=== PATIENT | male | born 1955 | race Two or more races ===

== ENCOUNTER 2017-05-13 08:00 | Outpatient (CLI) | payer BC, OTHER ==
[2017-05-13 12:51] LABS: BASOPHILS # (AUTO) 0.1 10^3/uL (0.0-0.1); BASOPHILS % (AUTO) 0.7 %; EOSINOPHILS # (AUTO) 0.3 10^3/uL (0.0-0.7); EOSINOPHILS % (AUTO) 3.2 %; HCT - HEMATOCRIT 44.1 % (42.0-52.0); HGB - HEMOGLOBIN 14.9 g/dL (14.0-18.0); LYMPHOCYTES % (AUTO) 24.9 %; MEAN CORPUSCULAR HEMOGLOBIN 30.6 pg (27.0-31.0); MEAN CORPUSCULAR HGB CONC 33.8 g/dL (32.0-36.0); MEAN CORPUSCULAR VOLUME 90.6 fL (80.0-94.0); MEAN PLATELET VOLUME 9.1 fL (7.4-11.4); MONOCYTES # (AUTO) 0.7 10^3/uL (0.0-1.0); MONOCYTES % (AUTO) 8.9 %; NEUTROPHILS # (AUTO) 4.9 10^3/uL (1.5-6.6); NEUTROPHILS % (AUTO) 62.3 %; NUCLEATED RED BLOOD CELLS AUTO 0.1 /100WBC; RED BLOOD COUNT 4.87 10^6/uL (4.70-6.10); RED CELL DISTRIBUTION WIDTH 14.4 % (12.0-15.0); UNCORRECTED WHITE BLOOD COUNT 7.9 x10^3/uL; WHITE BLOOD COUNT 7.9 x10^3/uL (4.8-10.8)
[2017-05-13 13:21] LABS: ALBUMIN/GLOBULIN RATIO 1.4 (1.0-2.2); BILIRUBIN,TOTAL 0.8 mg/dL (0.2-1.0); BUN - BLOOD UREA NITROGEN 17 mg/dL (6-20); CALCIUM 9.1 mg/dL (8.5-10.3); CARBON DIOXIDE - CO2 25 mmol/L (21-32); CHLORIDE 108 mmol/L (101-111); CHOL/HDL RATIO 5.5 (<5.0); CHOLESTEROL 181 mg/dL; GFR - MDRD 76 (>89); GLUCOSE 132 mg/dL (70-100); HDL CHOLESTEROL 33 mg/dL; LDL/HDL RATIO 3.7 (<3.6); POTASSIUM 4.3 mmol/L (3.5-5.0); SODIUM 139 mmol/L (135-145); TOTAL PROTEIN 7.1 g/dL (6.7-8.2); TRIGLYCERIDES 123 mg/dL; VLDL CHOLESTEROL 25 mg/dL
== END 2017-05-13 08:01 | disposition home or self-care (01) ==
LOC: LAB.WCP 08:00
PROVIDERS: ATTEND Family Medicine
DX: E78.5 Hyperlipidemia, unspecified (principal); Z12.5 Encounter for screening for malignant neoplasm of prostate
CPT/HCPCS: 36415; 80053; 80061; 84153; 85025

== ENCOUNTER 2020-01-26 17:24 | Outpatient (CLI) | payer OTHER | END 2020-01-26 17:25 | disposition critical access hospital (66) | LOC: EMS 17:24 | PROVIDERS: ATTEND Surgery | DX: R41.82 Altered mental status, unspecified (principal); R11.2 Nausea with vomiting, unspecified | CPT/HCPCS: A0425; A0427 ==

== ENCOUNTER 2020-01-26 17:36 | Emergency (ER) | payer OTHER ==
[2020-01-26] MEDS ORDERED: SODIUM CHLORIDE 0.9% 1,000 ML IV STA (17:52)
[2020-01-26 18:21] LABS: BASOPHILS # (AUTO) 0.1 10^3/uL (0.0-0.1); BASOPHILS % (AUTO) 0.4 %; EOSINOPHILS # (AUTO) 0.1 10^3/uL (0.0-0.7); EOSINOPHILS % (AUTO) 0.9 %; HGB - HEMOGLOBIN 15.1 g/dL (14.0-18.0); LYMPHOCYTES # (AUTO) 2.1 10^3/uL (1.5-3.5); LYMPHOCYTES % (AUTO) 17.7 %; MEAN CORPUSCULAR HEMOGLOBIN 31.5 pg (27.0-31.0); MEAN CORPUSCULAR HGB CONC 33.9 g/dL (32.0-36.0); MEAN CORPUSCULAR VOLUME 92.9 fL (80.0-94.0); MEAN PLATELET VOLUME 10.1 fL (7.4-11.4); MONOCYTES # (AUTO) 0.7 10^3/uL (0.0-1.0); MONOCYTES % (AUTO) 5.9 %; NEUTROPHILS # (AUTO) 8.6 10^3/uL (1.5-6.6); NEUTROPHILS % (AUTO) 74.4 %; PLT - PLATELET COUNT 251 10^3/uL (130-450); RED CELL DISTRIBUTION WIDTH 13.7 % (12.0-15.0); WHITE BLOOD COUNT 11.6 x10^3/uL (4.8-10.8)
--- NOTE | 2020-01-26 18:28 | ED Physician Documentation ---
History of Present Illness - Stated complaint Stated Complaint: N/V - Chief complaint Chief Complaint: General - History obtained from History obtained from: Patient, Family, EMS - History of Present Illness Timing: Today - Additonal information Additional information: 64-year-old male began to feel quite abnormal began to have excessive diaphoresis and difficulty concentrating and he eventually vomited. He called his friend Dr. Razo and when he did not have improvement with hydration Dr. Rzao came to evaluate the patient and found him to be diaphoretic and not thinking clearly. A granddaughter present indicated that she had made some cannabis brownies usually containing about 200 mg of THC and one brownie. She states she eats 1/4 of one of these brownies and her father unknowingly ate the entire brownie. He does not have experience with cannabis or other drugs. He does not feel well. Review of Systems Constitutional: reports: Fatigue, Sweats. denies: Fever Ears: denies: Ear pain Nose: denies: Congestion Throat: denies: Sore throat Cardiac: denies: Chest pain / pressure, Palpitations Respiratory: denies: Dyspnea, Cough GI: reports: Nausea, Vomiting : denies: Dysuria Skin: denies: Rash Musculoskeletal: denies: Neck pain, Back pain, Extremity pain Neurologic: reports: Confused. denies: Generalized weakness, Focal weakness, Numbness, Headache, Head injury, LOC Psychiatric: reports: Hallucinations PD PAST MEDICAL HISTORY - Past Medical History Cardiovascular: Hypertension Respiratory: None Neuro: None Endocrine/Autoimmune: None GI: None : None HEENT: None Psych: None Musculoskeletal: None Derm: None - Past Surgical History Past Surgical History: No - Present Medications Home Medications: Ambulatory Orders Medication Instructions Recorded Confirmed Telmisartan/Hydrochlorothiazid 1 each PO DAILY 01/26/20 01/26/20 [Telmisartan-Hctz 40-12.5 mg Tb] - Allergies Allergies/Adverse Reactions: Allergies Allergy/AdvReac Type Severity Reaction Status Date / Time No Known Drug Allergies Allergy Verified 01/26/20 17:50 - Social History Does the pt smoke?: No Smoking Status: Never smoker Does the pt drink ETOH?: Yes Does the pt have substance abuse?: No - Immunizations Immunizations are current?: Yes PD ED PE NORMAL - Vitals Vital signs reviewed: Yes (NORMAL ) - General General: No acute distress, Well developed/nourished, Other (The patient is withdrawn prefers to sit with his eyes closed and is interactive only when specifically requested.) - HEENT HEENT: Atraumatic, PERRL, EOMI - Neck Neck: Supple, no meningeal sign, No bony TTP - Cardiac Cardiac: No murmur, Other (irregular) - Respiratory Respiratory: No respiratory distress, Clear bilaterally - Abdomen Abdomen: Soft, Non tender - Back Back: No CVA TTP, No spinal TTP - Derm Derm: Normal color, Warm and dry, No rash - Extremities Extremities: No deformity, No edema - Neuro Neuro: Alert and oriented X 3, buncher operator 2-12 intact, No motor deficit, No sensory deficit, Normal speech Eye Opening: To Voice Motor: Obeys Commands Verbal: Oriented GCS Score: 14 - Psych Psych: Other (mood is withdrawn and the affect is flat ) Results - Vitals Vitals: Vital Signs - 24 hr 01/26/20 01/26/20 01/26/20 17:50 17:58 19:15 Temperature 35.6 C L Heart Rate 97 99 84 Respiratory 22 16 16 Rate Blood Pressure 108/65 141/74 H 124/92 H O2 Saturation 93 95 98 Oxygen O2 Source Room air - EKG (time done) 1800 Rate: Rate (enter#) (112) Rhythm: LAE, Other (frequent PAC's) [place]: LAD QRS: Poor R wave progression Compare to prior EKG: Old EKG unavailable Computer interpretation: Agree with computer - Labs Labs: Laboratory Tests 01/26/20 01/26/20 01/26/20 18:16 18:16 18:16 WBC 11.6 H RBC 4.80 Hgb 15.1 Hct 44.6 MCV 92.9 MCH 31.5 H MCHC 33.9 RDW 13.7 Plt Count 251 MPV 10.1 Neut # (Auto) 8.6 H Lymph # (Auto) 2.1 [place] # (Auto) 0.7 Eos # (Auto) 0.1 Baso # (Auto) 0.1 Absolute Nucleated RBC 0.00 Nucleated RBC % 0.0 Sodium 139 Potassium 3.7 Chloride 102 Carbon Dioxide 27 Anion Gap 10.0 BUN 15 Creatinine 1.1 Estimated GFR (MDRD) 68 L Glucose 228 H Calcium 9.1 Total Bilirubin 0.5 AST 30 ALT 24 Alkaline Phosphatase 45 Troponin I High Sens 3.3 Total Protein 7.4 Albumin 4.5 Globulin 2.9 Albumin/Globulin Ratio 1.6 Lipase 22 PD MEDICAL DECISION MAKING - ED course Complexity details: reviewed results, re-evaluated patient, considered differential, d/w patient, d/w family ED course: 64-year-old male with very little experience with cannabis has ingested a significant quantity unbeknownst to him and now feels quite abnormal. He has ingested as much as 200 mg of THC which is a high dose, a typical edible will have 10mg per "dose". He has become ill with this is become diaphoretic and he has having trouble concentrating. Is brought into the emergency department IV saline running and we will place him while in observation until he improves. Departure - Departure Clinical Impression: Cannabis intoxication delirium Condition: Stable Instructions: ED Marijuana Abuse
[2020-01-26 18:35] LABS: ALBUMIN 4.5 g/dL (3.2-5.5); ALBUMIN/GLOBULIN RATIO 1.6 (1.0-2.2); BILIRUBIN,TOTAL 0.5 mg/dL (0.2-1.0); CALCIUM 9.1 mg/dL (8.5-10.3); CREATININE 1.1 mg/dL (0.6-1.2); TOTAL PROTEIN 7.4 g/dL (6.7-8.2)
--- NOTE | 2020-01-27 00:51 | ED Physician Documentation ---
ED Addendum - Addendum Addendum: 01/27/20 00:49 The patient had been turned over to me on change of shift. He apparently had unintentionally ingested some cannabis edibles. He is having altered mentation and off balance for walking. He was still feeling of bit lightheaded and confused on my initial exam. However over the next few hours the patient had gradual improvement and subsequently was able to be up and around and ambulatory and felt sturdy enough to at home. No other symptoms have developed. His is with him and feels comfortable taking him home at this point. Diagnosis accidental ingestion of cannabis with altered mental status Disposition the patient is discharged home in stable condition
[2020-01-27 01:39] VITALS: BP 122/79
== END 2020-01-27 00:55 | disposition home or self-care (01) ==
LOC: EDUNIT# → ED 17:36
DX: F12.921 Cannabis use, unspecified with intoxication delirium (principal); I10 Essential (primary) hypertension; R00.0 Tachycardia, unspecified; I49.1 Atrial premature depolarization; I44.4 Left anterior fascicular block
CPT/HCPCS: 36415; 80053; 83690; 84484; 85025; 93005; 96360; 96361; 99284

== ENCOUNTER 2022-05-22 06:23 | Day surgery (SDC) | payer MEDICARE, OTHER ==
[2022-05-22] MEDS ORDERED: LACTATED RINGERS 1,000 ML IV ONE ×2 (07:05→08:27)
--- NOTE | 2022-05-22 07:10 | ANESTHESIA ---
Pre-Anesthesia VS, & Labs - Diagnosis screening colonoscopy - Procedure colonoscopy Vital Signs: Temp Pulse Resp BP Pulse Ox O2 Flow Rate 36.1 C L 85 16 132/84 H 97 05/22/22 06:39 05/22/22 06:39 05/22/22 06:39 05/22/22 06:39 05/22/22 06:39 Height: 6 ft Weight (kg): 93.3 kg Body Mass Index: 27.8 BMI Classification: Overweight - NPO >8 hours - Lab Results Current Lab Results: Laboratory Tests 05/22/22 06:57: POC Whole Bld Glucose 150 H Home Medications and Allergies Home Medications: Ambulatory Orders metFORMIN [Glucophage] 500 mg PO BIDWM 05/21/22 Telmisartan/Hydrochlorothiazid [Telmisartan-Hctz 40-12.5 mg Tb] 1 each PO DAILY 01/26/20 metFORMIN [Glucophage] 500 mg PO BIDWM 05/21/22 Allergies/Adverse Reactions: Allergies Allergy/AdvReac Type Severity Reaction Status Date / Time No Known Drug Allergies Allergy Verified 01/26/20 17:50 Anes History & Medical History - Anesthetic History Anesthesia Complications: reports: No previous complications - Medical History Cardiovascular: reports: Hypertension Pulmonary: reports: None Gastrointestinal: reports: None Urinary: reports: None Neuro: reports: None Musculoskeletal: reports: None Endocrine/Autoimmune: reports: Type 2 diabetes Blood Disorders: reports: None Skin: reports: None Smoking Status: Never smoker Psychosocial: reports: No issues indicated History of Cancer?: No - Surgical History General: reports: Colonoscopy Exam General: Alert, Oriented x3, Cooperative, No acute distress Dental: WNL Mouth Openin Fingerbreadth Neck Mobility: Normal Mallampati classification: II Thyromental Distance: 4-6 cm Mental/Cognitive Status: Alert/Oriented X3, Normal for patient Plan Anesthesia Type: General, Total IV Consent for Procedure(s) Verified and Reviewed: Yes Code Status: Attempt Resuscitation ASA classification: 2-Mild systemic disease Is this case an emergency?: No
[2022-05-22] MEDS ORDERED: PROPOFOL 500 MG/50 ML 500 MG/50 ML VIAL ONE (07:31)
[2022-05-22] MEDS ORDERED: ATROPINE 0.4 MG/ML VIAL IVP ONE (08:20)
[2022-05-22 09:04] VITALS: BP 134/87
--- NOTE | 2022-05-22 09:56 | ANESTHESIA POST OP EVALUATION ---
Anesthesia Post Eval - Post Anesthesia Eval Vitals: Last Vital Signs Temp 36 C L 05/22/22 09:04 Pulse 80 05/22/22 09:04 Resp 16 05/22/22 09:04 BP 134/87 H 05/22/22 09:04 Pulse Ox 99 05/22/22 09:04 O2 Flow Rate CV Function Including HR & BP: Stable Pain Control: Satisfactory Nausea & Vomiting: Negative Mental Status: Baseline Respiratory Status: Airway Patent Hydration Status: Satisfactory Anesthesia Complications: None
== END 2022-05-22 06:24 | disposition home or self-care (01) ==
LOC: SDS 06:23
PROVIDERS: ATTEND Surgery
PROC: 0DBN8ZZ Excision of Sigmoid Colon, Via Natural or Artificial Opening Endoscopic (ICD-10-PCS; principal; 2022-05-22 07:30)
DX: R19.5 Other fecal abnormalities (principal); K63.5 Polyp of colon; K64.8 Other hemorrhoids; K57.30 Diverticulosis of large intestine without perforation or abscess without bleeding; E11.9 Type 2 diabetes mellitus without complications
CPT/HCPCS: 45380; J7120